=== PATIENT | male | born 1980 | race Caucasian/White ===

== ENCOUNTER 2021-02-13 04:36 | Emergency (ER) | payer MEDICAID, SELFPAY ==
[2021-02-13 04:38] VITALS: BP 158/92; PULSE 100; RESP 16; TEMP 36.2; O2SAT 98; BMI 23.1
--- NOTE | 2021-02-13 04:56 | CT_ITS ---
PROCEDURE INFORMATION: Exam: CT Abdomen And Pelvis With Contrast Exam date and time: 02/13/2021 4:56 AM Age: 40 years old Clinical indication: Other: Trouble urintating; Patient HX: Trouble urinating for 3 days; Additional info: Lower abd pain TECHNIQUE: Imaging protocol: Computed tomography of the abdomen and pelvis with contrast. Radiation optimization: All CT scans at this facility use at least one of these dose optimization techniques: automated exposure control; mA and/or kV adjustment per patient size (includes targeted exams where dose is matched to clinical indication); or iterative reconstruction. Contrast material: ISOVUE; Contrast volume: 70 ml; Contrast route: IV; COMPARISON: No relevant prior studies available. FINDINGS: Liver: Normal. No mass. Gallbladder and bile ducts: Normal. No calcified stones. No ductal dilation. Pancreas: Normal. No ductal dilation. Spleen: Normal. No splenomegaly. Adrenal glands: Normal. No mass. Kidneys and ureters: There are nonobstructing calculi in both kidneys. There is mild bilateral hydroureter and periureteral inflammatory stranding suggesting an ascending infection. Stomach and bowel: Unremarkable. No obstruction. No mucosal thickening. Appendix: The appendix is normal. Intraperitoneal space: Unremarkable. No free air. No significant fluid collection. Vasculature: Unremarkable. No abdominal aortic aneurysm. Lymph nodes: Unremarkable. No enlarged lymph nodes. Urinary bladder: There is marked diffuse bladder wall thickening with surrounding inflammatory stranding consistent with cystitis. Reproductive: There is marked low-attenuation within the prostate consistent with probable prostatitis. There is a Correa catheter in place with its bubble inflated within the prostatic urethra. This should be advanced further into the bladder. Bones/joints: Unremarkable. No acute fracture. Soft tissues: There is right gynecomastia. IMPRESSION: Severe cystitis and probable prostatitis with ascending infection in both ureters. Correa catheter with its balloon inflated in the prostatic urethra should be advanced further into the bladder. Nonobstructing bilateral renal calculi. Gynecomastia.
[2021-02-13 05:27] LABS: Microscopic, Urine URINE MICROSCOPIC (MICROSCOPIC)
[2021-02-13 05:29] LABS: Basophils # 0.1 K/mm3 (0-0.2); Basophils % 0.5 % (0.1-2.0); Eosinophils # 0.1 K/mm3 (0.0-0.4); Eosinophils % 0.8 % (0.1-12.0); Hematocrit 43.1 % (42.0-52.0); Hemoglobin 14.3 g/dL (14.1-18.0); Lymphocytes # 2.6 K/mm3 (0.7-4.5); Lymphocytes % 15.8 % (10-50); Mean Corpuscular HGB Conc 33.1 g/dL (31.8-35.4); Mean Corpuscular Hemoglobin 29.9 pg (27.0-31.2); Mean Corpuscular Volume 90.2 fl (80-94); Mean Platelet Volume 8.1 fl (7.4-10.4); Monocytes # 0.7 K/mm3 (0.1-1.0); Monocytes % 4.3 % (1.7-9.3); Neutrophils # 12.8 K/mm3 (1.8-7.8); Neutrophils % 78.7 % (37.0-80.0); Platelet Count 369 K/mm3 (142-424); Red Blood Count 4.77 M/mm3 (4.60-6.20); Red Cell Distribution Width 15.2 % (11.5-17.5); White Blood Count 16.2 K/mm3 (4.8-10.8)
[2021-02-13 05:39] LABS: MANUAL DIFFERENTIAL MANUAL DIFFERENTIAL (MANUAL DIFF)
[2021-02-13 05:41] LABS: Appearance,Urine CLEAR (Clear); Bilirubin,Urine Negative (Negative); Blood, Urine TRACE-I (Negative); Color,Urine YELLOW (Yellow); Glucose,Urine (UA) Negative (Negative); Ketones,Urine Negative (Negative); Leukocyte Esterase,Urine 1+ (Negative); Nitrate,Urine POSITIVE (Negative); PH,Urine 6.5 (5.0-8.5); Protein,Urine Negative (Negative)
[2021-02-13 05:44] LABS: Alanine Aminotransferase 25 U/L (12-78); Albumin Level 4.1 g/dl (3.5-5.0); Albumin/Globulin Ratio 0.9 (1.1-1.8); Alkaline Phosphatase 117 U/L (38-126); Amylase 78 U/L (30-110); Anion Gap 12.4 mEq/L (5-15); Aspartate Amino Transferase 31 U/L (17-59); Bilirubin,Total 0.4 mg/dl (0.2-1.3); Blood Urea Nitrogen 8 mg/dl (9-20); Calcium 9.4 mg/dl (8.4-10.2); Carbon Dioxide 28 mmol/L (22.0-30.0); Chloride 100 mmol/L (98-107); Creatinine Clearance Estimated 165 mL/min (50-200); Estimated Glomerular Filt Rate 126 ml/min (>60); GFR (African American) 153 ML/MIN (>60); Globulin 4.5 g/dL (1.3-3.2); Glucose 125 mg/dl (74-100); Lipase 49 U/L (23-300); Potassium 3.4 mmoL/L (3.5-5.1); Sodium 137 mmol/L (136-145); Total Protein,Serum 8.6 g/dl (6.3-8.2)
[2021-02-13 05:49] LABS: C-Reactive Protein 37.6 mg/L (0-4)
[2021-02-13 05:53] LABS: Amphetamine/Metha Screen,Urine Negative ng/ml (<1000)
[2021-02-13 05:54] LABS: Barbiturates Screen,Urine Negative ng/ml (<200)
[2021-02-13 05:55] LABS: Benzodiazepines Screen,Urine Negative ng/ml (<200); Cannabinoid Screen,Urine Negative ng/ml (<50)
[2021-02-13 05:56] LABS: Cocaine Screen,Urine Negative ng/ml (<300)
[2021-02-13 05:57] LABS: Methadone Screen,Urine Negative ng/ml (<300); Opiate Screen,Urine Positive ng/ml (<300)
[2021-02-13 05:58] LABS: Phencyclidine Screen,Urine Negative ng/ml (<25)
[2021-02-13 06:03] LABS: Procalcitonin 0.093 ng/mL (0.0-2.0)
[2021-02-13 06:17] LABS: Erythrocyte Sedimentation Rate 19 mm/hr (0-15)
--- NOTE | 2021-02-13 06:22 | [facility].EDUROGM ---
ED Disposition Clinical Impression: Acute urinary retention, Cystitis, SIRS (systemic inflammatory response syndrome) Prostatitis Qualifiers: Prostatitis type: acute Qualified Code(s): N41.0 - Acute prostatitis Disposition: Home, Self-Care Condition on Discharge: Good Instructions: DI for Urinary Tract Infection (UTI), DI for Urinary Retention in Men Additional Instructions: fluids and use meds and see pcp for follow up Prescriptions: levoFLOXacin [Levaquin 500mg tab] 500 mg PO DAILY #14 tab Transmission Status: Pending to [facility] Phenazopyridine HCl [Pyridium 200mg Tablet] 200 pow PO TID #6 tab Transmission Status: Pending to [facility] Referrals: Provider,MD Bhargav [Primary Care Provider] - Ez Brown MD [Staff Physician] - - Critical Care Critical Care Time: No Attestation: On 02/13/21, the high probability of a clinically significant, sudden or life threatening deterioration of the following system(s) required my full and direct attention, intervention and personal management. The time I documented below is in addition to time spent performing reported procedures but includes the following listed in this critical care notation. Medical Decision Making - Medical Records Medical records reviewed: Yes: I reviewed the patient's medical records. - Mauricio Inquiry Pt receiving controlled substance: No Vital Signs: 02/13/21 04:38 02/13/21 07:18 Temperature 97.2 F L 98.1 F Temperature Source Oral Oral Pulse Rate 80 Pulse Rate [Right] 100 H Respiratory Rate 16 16 Blood Pressure 113/74 Blood Pressure [Right Arm] 158/92 H Blood Pressure Mean [Right Arm] 114 Blood Pressure Position Sitting 02 Sat by Pulse Oximetry 98 97 Oxygen Delivery Method Room Air - Lab Data Lab results reviewed: Yes: I reviewed the patient's lab results. Lab Results 02/13/21 04:51: WBC 16.2 H, RBC 4.77, Hgb 14.3, Hct 43.1, MCV 90.2, MCH 29.9, MCHC 33.1, RDW 15.2, Plt Count 369, MPV 8.1, Neut % (Auto) 78.7, Lymph % (Auto) 15.8, [place] % (Auto) 4.3, Eos % (Auto) 0.8, Baso % (Auto) 0.5, Neut # (Auto) 12.8 H, Lymph # (Auto) 2.6, [place] # (Auto) 0.7, Eos # (Auto) 0.1, Baso # (Auto) 0.1, ESR 19 H 02/13/21 04:51: Sodium 137, Potassium 3.4 L, Chloride 100, Carbon Dioxide 28, Anion Gap 12.4, BUN 8 L, Creatinine 0.70, Estimated Creat Clear 165, Estimated GFR 126, Est GFR ( Amer) 153, Glucose 125 H, Calcium 9.4, Total Bilirubin 0.4, AST 31, ALT 25, Alkaline Phosphatase 117, C-Reactive Protein 37.6 H, Total Protein 8.6 H, Albumin 4.1, Globulin 4.5 H, Albumin/Globulin Ratio 0.9 L, Amylase 78, Lipase 49, Procalcitonin 0.093 02/13/21 04:51: Urine Opiates Screen Positive H, Urine Methadone Screen Negative, Ur Barbituates Screen Negative, Ur Phencyclidine Scrn Negative, Ur Amphetamines Screen Negative, U Benzodiazepines Scrn Negative, Urine Cocaine Screen Negative, U Marijuana (THC) Screen Negative 02/13/21 05:07: Urine Color Yellow, Urine Appearance Clear, Urine pH 6.5, Ur Specific [place] 1.010, Urine Protein Negative, Urine Glucose (UA) Negative, Urine Ketones Negative, Urine Blood Trace-i, Urine Nitrate Positive, Urine Bilirubin Negative, Urine Urobilinogen 2.0, Ur Leukocyte Esterase 1+ A, Urine RBC 3-5, Urine WBC 5-10, Ur Squamous Epith Cells 3-5, Urine Bacteria Trace 02/13/21 06:06: Lactate 0.8 Result diagrams: 02/13/21 04:51 02/13/21 04:51 Orders (Tests/Meds): ED MEDICATIONS Generic Name Dose Route Start Last Admin Trade Name Freq PRN Reason Stop Dose Admin Sodium Chloride 1,000 mls @ 999 mls/hr 02/13/21 05:00 02/13/21 05:04 Sod Chlor 0.9% 1000ml Bag IV 02/13/21 06:00 999 mls/hr .Q1H1M ZIA Administration Ceftriaxone Sodium 1 gm/ 50 mls @ 100 mls/hr 02/13/21 06:45 02/13/21 06:36 Sodium Chloride IV 02/27/21 06:44 100 mls/hr Q24H ZIA Administration Discontinued Medications Generic Name Dose Route Start Last Admin Trade Name Freq PRN Reason Stop Dose Admin Cef
[2021-02-13 06:32] LABS: Bacteria,Urine Trace /lpf
--- NOTE | 2021-02-13 06:46 | PC.NURSE ---
attempted to call radiology to check status of ct report. XR not available at this time, will try again.
[2021-02-13 06:54] LABS: Lactic Acid 0.8 mmol/L (0.7-2.1)
[2021-02-13 07:18] VITALS: BP 113/74; PULSE 80; RESP 16; TEMP 36.7; O2SAT 97
[2021-02-13 07:23] LABS: Lymphocytes % 14 % (10-50); Monocytes % 5 % (2-9); Neutrophils % 81 % (42-76); Total Cells Counted 100
[2021-02-13 07:24] LABS: Platelet Estimate Normal; RBC Morphology Normal
--- NOTE | 2021-02-13 07:31 | PC.NURSE ---
griggs cath removed.
[2021-02-13 08:00] VITALS: BP 129/78; PULSE 78; RESP 16; TEMP 36.7; O2SAT 98
--- NOTE | 2021-02-16 14:19 | PC.NURSE ---
pt called and explained of MRSA in blood cultures and urine Cultures, pt advised to contact family or to be sure and get the follow up with Dr Brown.
== END 2021-02-13 08:02 | disposition home or self-care (01) ==
PROVIDERS: Emergency Provider Emergency Medicine
DX: N41.0 Acute prostatitis (principal); N30.90 Cystitis, unspecified without hematuria; R65.10 Systemic inflammatory response syndrome (SIRS) of non-infectious origin without acute organ dysfunction; F17.210 Nicotine dependence, cigarettes, uncomplicated
CPT/HCPCS: 74177; 80053; 80305; 81001; 82150; 83605; 83690; 84145; 85007; 85025; 85651; 86140; 87040; 87077; 87086; 87186; 96365; 96367; 96375; 99284; J2405; Q9967

== ENCOUNTER 2021-02-14 21:40 | Emergency (ER) | payer MEDICAID, SELFPAY ==
[2021-02-14 21:40] VITALS: BP 149/94; PULSE 100; RESP 16; TEMP 36.9; O2SAT 99; BMI 23.1
[2021-02-14 22:00] VITALS: BP 143/93; PULSE 96; O2SAT 98
[2021-02-14 22:14] LABS: Basophils # 0.1 K/mm3 (0-0.2); Basophils % 0.7 % (0.1-2.0); Eosinophils # 0.3 K/mm3 (0.0-0.4); Eosinophils % 2.2 % (0.1-12.0); Hematocrit 41.3 % (42.0-52.0); Hemoglobin 13.7 g/dL (14.1-18.0); Lymphocytes # 3.5 K/mm3 (0.7-4.5); Lymphocytes % 24.1 % (10-50); Mean Corpuscular HGB Conc 33.1 g/dL (31.8-35.4); Mean Corpuscular Hemoglobin 29.9 pg (27.0-31.2); Mean Corpuscular Volume 90.4 fl (80-94); Mean Platelet Volume 8.1 fl (7.4-10.4); Monocytes # 0.7 K/mm3 (0.1-1.0); Monocytes % 4.8 % (1.7-9.3); Neutrophils # 9.9 K/mm3 (1.8-7.8); Neutrophils % 68.1 % (37.0-80.0); Platelet Count 351 K/mm3 (142-424); Red Blood Count 4.57 M/mm3 (4.60-6.20); Red Cell Distribution Width 15.2 % (11.5-17.5); White Blood Count 14.5 K/mm3 (4.8-10.8)
[2021-02-14 22:21] LABS: Microscopic, Urine URINE MICROSCOPIC (MICROSCOPIC)
[2021-02-14 22:25] LABS: Alanine Aminotransferase 25 U/L (12-78); Albumin Level 3.9 g/dl (3.5-5.0); Albumin/Globulin Ratio 0.9 (1.1-1.8); Alkaline Phosphatase 115 U/L (38-126); Anion Gap 11.2 mEq/L (5-15); Aspartate Amino Transferase 24 U/L (17-59); Bilirubin,Total 0.3 mg/dl (0.2-1.3); Blood Urea Nitrogen 3 mg/dl (9-20); Calcium 9.2 mg/dl (8.4-10.2); Carbon Dioxide 29 mmol/L (22.0-30.0); Chloride 102 mmol/L (98-107); Creatinine Clearance Estimated 193 mL/min (50-200); Estimated Glomerular Filt Rate 151 ml/min (>60); GFR (African American) 182 ML/MIN (>60); Globulin 4.2 g/dL (1.3-3.2); Glucose 105 mg/dl (74-100); Potassium 3.2 mmoL/L (3.5-5.1); Sodium 139 mmol/L (136-145); Total Protein,Serum 8.1 g/dl (6.3-8.2)
[2021-02-14 22:30] VITALS: BP 129/74; PULSE 81; O2SAT 95
[2021-02-14 22:31] LABS: C-Reactive Protein 24.6 mg/L (0-4)
[2021-02-14 22:35] LABS: Lactic Acid 2.1 mmol/L (0.7-2.1)
[2021-02-14 22:35] LABS: Appearance,Urine CLEAR (Clear); Bilirubin,Urine Negative (Negative); Blood, Urine Negative (Negative); Color,Urine ORANGE (Yellow); Glucose,Urine (UA) TRACE (Negative); Ketones,Urine Negative (Negative); Leukocyte Esterase,Urine TRACE (Negative); Nitrate,Urine POSITIVE (Negative); PH,Urine 6.5 (5.0-8.5); Protein,Urine 2+ (Negative); Urobilinogen,Urine >=8.0 EU/dl (0.2)
[2021-02-14 22:39] LABS: Erythrocyte Sedimentation Rate 32 mm/hr (0-15)
[2021-02-14 22:44] LABS: Procalcitonin 0.064 ng/mL (0.0-2.0)
[2021-02-14 22:50] LABS: Bacteria,Urine Trace /lpf; RBC,Urine Occasional #/hpf (0-3)
[2021-02-14 23:01] VITALS: BP 118/73; PULSE 77; O2SAT 97
--- NOTE | 2021-02-14 23:11 | [facility].EDUROGM ---
ED Disposition Clinical Impression: Acute urinary retention Prostatitis Qualifiers: Prostatitis type: acute Qualified Code(s): N41.0 - Acute prostatitis Disposition: Home, Self-Care Condition on Discharge: Good Instructions: Prostatitis, DI for Urinary Retention in Men Additional Instructions: use meds and see pcp and urology Referrals: Provider,MD Bhargav [Primary Care Provider] - Ez Brown MD [Staff Physician] - - Critical Care Critical Care Time: No Attestation: On 02/14/21, the high probability of a clinically significant, sudden or life threatening deterioration of the following system(s) required my full and direct attention, intervention and personal management. The time I documented below is in addition to time spent performing reported procedures but includes the following listed in this critical care notation. Medical Decision Making - Medical Records Medical records reviewed: Yes: I reviewed the patient's medical records. - Mauricio Inquiry Pt receiving controlled substance: No Vital Signs: 02/14/21 21:40 02/14/21 22:00 02/14/21 22:30 Temperature 98.5 F Temperature Source Oral Pulse Rate 96 H 81 Pulse Rate [Right] 100 H Respiratory Rate 16 Blood Pressure 143/93 H 129/74 Blood Pressure [Right Arm] 149/94 H Blood Pressure Mean [Right Arm] 112 02 Sat by Pulse Oximetry 99 98 95 Oxygen Delivery Method Room Air Room Air 02/14/21 23:01 Temperature Temperature Source Pulse Rate 77 Pulse Rate [Right] Respiratory Rate Blood Pressure 118/73 Blood Pressure [Right Arm] Blood Pressure Mean [Right Arm] 02 Sat by Pulse Oximetry 97 Oxygen Delivery Method Room Air - Lab Data Lab results reviewed: Yes: I reviewed the patient's lab results. Lab Results 02/14/21 21:51: Urine Color [place], Urine Appearance Clear, Urine pH 6.5, Ur Specific [place] 1.020, Urine Protein 2+, Urine Glucose (UA) Trace, Urine Ketones Negative, Urine Blood Negative, Urine Nitrate Positive, Urine Bilirubin Negative, Urine Urobilinogen >=8.0, Ur Leukocyte Esterase Trace, Urine RBC Occasional, Urine WBC 3-5, Ur Squamous Epith Cells None, Urine Bacteria Trace 02/14/21 22:04: WBC 14.5 H, RBC 4.57 L, Hgb 13.7 L, Hct 41.3 L, MCV 90.4, MCH 29.9, MCHC 33.1, RDW 15.2, Plt Count 351, MPV 8.1, Neut % (Auto) 68.1, Lymph % (Auto) 24.1, [place] % (Auto) 4.8, Eos % (Auto) 2.2, Baso % (Auto) 0.7, Neut # (Auto) 9.9 H, Lymph # (Auto) 3.5, [place] # (Auto) 0.7, Eos # (Auto) 0.3, Baso # (Auto) 0.1, ESR 32 H 02/14/21 22:04: Sodium 139, Potassium 3.2 L, Chloride 102, Carbon Dioxide 29, Anion Gap 11.2, BUN 3 L D, Creatinine 0.60 L, Estimated Creat Clear 193, Estimated GFR 151, Est GFR ( Amer) 182, Glucose 105 H, Calcium 9.2, Total Bilirubin 0.3, AST 24, ALT 25, Alkaline Phosphatase 115, C-Reactive Protein 24.6 H D, Total Protein 8.1, Albumin 3.9, Globulin 4.2 H, Albumin/Globulin Ratio 0.9 L, Procalcitonin 0.064 02/14/21 22:04: Lactate 2.1 Result diagrams: 02/14/21 22:04 02/14/21 22:04 Orders (Tests/Meds): ED MEDICATIONS Generic Name Dose Route Start Last Admin Trade Name Freq PRN Reason Stop Dose Admin Sodium Chloride 1,000 mls @ 999 mls/hr 02/14/21 22:00 02/14/21 22:07 Sod Chlor 0.9% 1000ml Bag IV 02/14/21 23:00 999 mls/hr .Q1H1M ZIA Administration Sodium Chloride 1,000 mls @ 999 mls/hr 02/14/21 23:00 02/14/21 22:57 Sod Chlor 0.9% 1000ml Bag IV 02/15/21 00:00 999 mls/hr .Q1H1M ZIA Administration Discontinued Medications Generic Name Dose Route Start Last Admin Trade Name Freq PRN Reason Stop Dose Admin Ketorolac Tromethamine 30 mg 02/14/21 22:00 02/14/21 22:07 Ketorolac 30mg/Ml Vial IV 02/14/21 22:01 30 mg ONCE ONE Administration Ondansetron HCl 4 mg 02/14/21 22:00 02/14/21 22:08 Ondansetron 4mg/2ml Vial IV 02/14/21 22:01 4 mg ONCE ONE Administration ORDERS Category Date Time Status Blood Culture Stat Micro 02/14/21 22:[address]
[2021-02-15 00:42] VITALS: BP 118/78; PULSE 82; RESP 16; TEMP 36.8; O2SAT 96
== END 2021-02-15 00:47 | disposition home or self-care (01) ==
PROVIDERS: Emergency Provider Emergency Medicine
DX: N41.0 Acute prostatitis (principal); F17.210 Nicotine dependence, cigarettes, uncomplicated; Z88.0 Allergy status to penicillin
CPT/HCPCS: 80053; 81001; 83605; 84145; 85025; 85651; 86140; 87040; 87086; 96365; 96366; 96375; 99283; J2405